=== PATIENT | female | born 1970 | race Two or more races ===

== ENCOUNTER 2023-01-20 17:26 | Emergency (ER) | payer OTHER ==
[~2023-01-20] VITALS: Ht 165.1 cm; Wt 65.8 kg
[2023-01-20] MEDS ORDERED: COZAAR50 MG PO (17:42)
[2023-01-20] MEDS ORDERED: LIPITOR40 M1 PO (17:42)
[2023-01-20] MEDS ORDERED: LYRICA50 MG PO (17:43)
[2023-01-20] MEDS ORDERED: CHLORTHALIDONE25 MG PO (17:45)
== END 2023-01-20 22:29 | disposition home or self-care (01) ==
LOC: ER 17:26
DX: M25.552 Pain in left hip (principal); I10 Essential (primary) hypertension; Z91.011 Allergy to milk products; Z88.6 Allergy status to analgesic agent; Z88.0 Allergy status to penicillin